=== PATIENT | male | born 2000 | race Caucasian/White ===

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

== ENCOUNTER 2024-08-31 15:46 | Emergency (ER) | payer MEDICAID, OTHER ==
--- NOTE | 2024-08-31 16:23 | ED ---
General Adult HPI - General Stated complaint: Testicular Pain/Back Pain Time Seen by Provider: 08/31/24 16:00 Source: patient, RN notes reviewed - History of Present Illness Initial comments: This is a 23-year-old male presenting to the emergency department for complaint of testicular pain that started at 1400 this afternoon with pain that radiated into his back. When pain started he had associated nausea and vomiting due to s everity of pain. He states the pain started while he was lying in bed he is he was off from work today. Currently denies dysuria, hematuria, previous urinary frequency or urgency. Also denies testicular swelling, erythema, penile discharge. Denies concern for STI or STD. - Related Data Home Medications Medication Instructions Recorded Confirmed No Known Home Medications 08/20/20 08/20/20 Allergies Allergy/AdvReac Type Severity Reaction Status Date / Time No Known Allergies Allergy Verified 08/31/24 16:31 Review of Systems ROS Statement: Those systems with pertinent positive or pertinent negative responses have been documented in the HPI. ROS Other: All systems not noted in ROS Statement are negative. Past Medical History Past Medical History: No Reported History History of Any Multi-Drug Resistant Organisms: None Reported Past Surgical History: Orthopedic Surgery Additional Past Surgical History / Comment(s): ankle surgery Past Psychological History: No Psychological Hx Reported Smoking Status: Never smoker Past Alcohol Use History: None Reported Past Drug Use History: None Reported General Exam - General Exam Comments Initial Comments: Visual Physical Exam Vital signs reviewed General: Well-appearing, nontoxic, no acute distress. Head: Normocephalic, atraumatic Eyes: PERRLA, EOMI ENT: Airway patent Chest: Nonlabored breathing Skin: No visual rash, normal skin tone Neuro: Alert and oriented 3 Musculoskeletal: No gross abnormalities General appearance: alert, in no apparent distress Neck exam: Present: normal inspection. Absent: tenderness, meningismus, lymphadenopathy Respiratory exam: Present: normal lung sounds bilaterally. Absent: respiratory distress, wheezes, rales, rhonchi, stridor Cardiovascular Exam: Present: regular rate, normal rhythm, normal heart sounds. Absent: systolic murmur, diastolic murmur, rubs, gallop, clicks GI/Abdominal exam: Present: soft, normal bowel sounds. Absent: distended, tenderness, guarding, rebound, rigid exam: Present: normal inspection. Absent: urethral discharge, scrotal swelling, vertical testicular lie Extremities exam: Present: normal inspection, full ROM, normal capillary refill. Absent: tenderness, pedal edema, joint swelling, calf tenderness Back exam: Present: normal inspection, CVA tenderness (L). Absent: CVA tenderness (R) Course Vital Signs 08/31/24 08/31/24 08/31/24 16:28 18:22 20:04 Temperature 98.5 F 98.4 F 99.1 F Pulse Rate 89 80 93 Respiratory 20 20 18 Rate Blood Pressure 134/86 130/84 114/80 O2 Sat by Pulse 98 99 99 Oximetry Medical Decision Making - Medical Decision Making Was pt. sent in by a medical professional or institution (, PA, DISCHARGE DOOR OPERATOR, urgent care, hospital, or group home...) When possible be specific @ -No Did you speak to anyone other than the patient for history (EMS, parent, family, police, friend...)? What history was obtained from this source @ -No Did you review nursing and triage notes (agree or disagree)? Why? @ -I reviewed and agree with nursing and triage notes Were old charts reviewed (outside hosp., previous admission, EMS record, old EKG, old radiological studies, urgent care reports/EKG's, group home records)? Report findings @ -No old charts were reviewed Differential Diagnosis (chest pain, altered mental status, abdominal pain women, abdominal pain men, vaginal bleeding, weakness, fever, dyspnea, syncope, headache, dizziness, GI bleed, back pain, seizure, CVA, palpatations, mental health, musculoskeletal)? @ -Differential Abdominal Pain Men: Appendicitis, cholecystitis, diverticulosis, ischemic bowel, pancreatitis, hepatitis, UTI, gastroenteritis, AAA, incarcerated hernia, bowel obstruction, constipation, inflammatory bowel, hepatitis, peptic ulcer disease, splenic infarction, perforated viscus, testicular torsion, this is not meant to be an all-inclusive list EKG interpreted by me (3pts min.). @ -None X-rays interpreted by me (1pt min.). @ -None done CT interpreted by me (1pt min.). @ -CT of the abdomen pelvis without contrast reveals 2 bladder stones measuring up to 3 mm with no obstructive calculus visualized no renal calculi or hydronephrosis U/S interpreted by me (1pt. min.). @ -Scrotal ultrasound with Doppler completed with no evidence for acute process, no evidence of intratesticular mass with arterial and venous waveforms to testes What testing was considered but not performed or refused? (CT, X-rays, U/S, labs)? Why? @ -None What meds were considered but not given or refused? Why? @ -None Did you discuss the management of the patient with other professionals (professionals i.e. Dr., PA, DISCHARGE DOOR OPERATOR, lab, RT, psych nurse, social worker clinical, graphics software engineer, teacher, signals officer, onsite case manager)? Give summary @ -No Was smoking cessation discussed for >3mins.? @ -No Was critical care preformed (if so, how long)? @ -No Were there social determinants of health that impacted care today? How? (Homelessness, low income, unemployed, alcoholism, drug addiction, transportation, low edu. Level, literacy, decrease access to med. care, intermediate, rehab)? @ -No Was there de-escalation of care discussed even if they declined (Discuss DNR or withdrawal of care, Hospice)? DNR status @ -No What co-morbidities impacted this encounter? (DM, HTN, Smoking, COPD, CAD, Cancer, CVA, ARF, Chemo, Hep., AIDS, mental health diagnosis, sleep apnea, morbid obesity)? @ -None Was patient admitted / discharged? Hospital course, mention meds given and ro ranjana, prescriptions, significant lab abnormalities, going to OR and other pertinent info. @ -discharged. 23-year-old male presenting with testicular pain. Overall patient is well-appearing in no signs of distress. Physical exam remarkable for mild CVA tenderness to the left flank with radiation to the mild mid abdomen. Urinalysis remarkable for moderate blood with 67 red cells. With concern for hematuria and flank pain patient will be evaluated CT imaging to rule out kidney stone. Ultrasound of the scrotum is unremarkable. Patient was offered pain medication however declined. Patient's urine is sent for evaluation of chlamydia gonorrhea. CT reveals bladder stones measuring 3 mm with no evidence of obstructive calculus or hydronephrosis. Patient is prior with referral to ur ology and return parameters have been discussed. Case discussed with Dr. Quintanilla Undiagnosed new problem with uncertain prognosis? @ -No Drug Therapy requiring intensive monitoring for toxicity (Heparin, Nitro, Insulin, Cardizem)? @ -No Were any procedures done? @ -No Diagnosis/symptom? @ -flank pain, testicular pain, hematuria. Acute, or Chronic, or Acute on Chronic? @ -acute Uncomplicated (without systemic symptoms) or Complicated (systemic symptoms)? @ -uncomplicated Side effects of treatment? @ -No Exacerbation, Progression, or Severe Exacerbation? @ -No Poses a threat to life or bodily function? How? (Chest pain, [place], [place], pneumonia, PE, COPD, DKA, ARF, appy, cholecystitis, CVA, Diverticulitis, Homicidal, Suicidal, threat to staff... and all critical care pts) @ -No - Lab Data Lab Results 08/31/24 Range/Units 16:43 Urine Color Yellow Urine Appearance Clear (Clear) Urine pH 8.0 (5.0-8.0) Ur Specific [place] 1.020 (1.001-1.035) Urine Protein Negative (Negative) Urine Glucose (UA) Negative (Negative) Urine Ketones Negative (Negative) Urine Blood Moderate H (Negative) Urine Nitrite Negative (Negative) Urine Bilirubin Negative (Negative) Urine Urobilinogen 2.0 (<2.0) mg/dL Ur Leukocyte Esterase Negative (Negative) Urine RBC 67 H (0-5) /hpf Urine WBC 2 (0-5) /hpf Urine Mucus Few H (None) /hpf Disposition Clinical Impression: Testicular pain, Hematuria Disposition: HOME SELF-CARE Condition: Stable Instructions (If sedation given, give patient instructions): Hematuria (ED) Additional Instructions: Please return to the Emergency Department if symptoms worsen or any other concerns. Is patient prescribed a controlled substance at d/c from ED?: No Referrals: None,Stated [Primary Care Provider] - 1-2 days Pj Shahid MD [STAFF PHYSICIAN] - 1-2 days Time of Disposition: 19:44
[2024-08-31 16:56] LABS: Appearance,Urine Clear (Clear); Bilirubin,Urine Negative (Negative); Blood,Urine Moderate (Negative); Color,Urine Yellow; Glucose,Urine (UA) Negative (Negative); Ketones,Urine Negative (Negative); Leukocyte Esterase,Urine Negative (Negative); Mucus,Urine Few /hpf; Nitrite,Urine Negative (Negative); Protein,Urine Negative (Negative); RBC,Urine 67 /hpf (0-5); WBC,Urine 2 /hpf (0-5)
--- NOTE | 2024-08-31 18:19 | US ---
EXAMINATION TYPE: US scrotum with doppler. DATE OF EXAM: 08/31/2024 COMPARISON: NONE CLINICAL INDICATION: Male, 23 years old with history of pain; patient states left testicle pain since 2pm. was really bad, now a 07/20. TECHNIQUE: Grayscale, color Doppler and spectral Doppler imaging of the scrotum. FINDINGS: EXAM MEASUREMENTS: TESTICLES: Right Testicle: 4.2 x 2.2 x 3.0 cm Left Testicle: 4.2 x 2.5 x 3.4 cm EPIDIDYMIS HEAD: Right Epididymis: 1.1 x 0.9 x 1.1 cm Left Epididymis: 1.1 x 1.0 x 0.9 cm Doppler performed to assess for testicular vascularity; good bilateral color flow and spectral wavefo juan carlos are seen. There is no evidence of testicular torsion. Presence of hydroceles: trace amount of fluid left side Presence of varicoceles: no IMPRESSION: 1. No evidence for acute process. 2. No evidence for intratesticular mass. 3. Appropriate arterial and venous spectral waveforms to the testes. [facility], , 08/31/2024 6:17 PM
--- NOTE | 2024-08-31 19:37 | CT ---
EXAMINATION TYPE: CT abdomen pelvis wo con DATE OF EXAM: 08/31/2024 6:45 PM COMPARISON: None CLINICAL INDICATION: Male, 23 years old with history of L flank pain w/ radiation in abd. hematuria; Left side abdominal flank pain, hematuria. TECHNIQUE: Axial CT abdomen pelvis wo con;Sagittal and coronal reformats were created on a separate workstation. Contrast used: mL of , (none if empty) Oral contrast used: without Oral Contrast (none if empty) CT DLP: 799.5 mGycm, Automated exposure control for dose reduction was used. FINDINGS: LOWER CHEST: Unremarkable ABDOMEN LIVER: Unremarkable GALLBLADDER AND BILE DUCTS: Unremarkable. PANCREAS: Unremarkable. SPLEEN: Unremarkable. ADRENAL GLANDS: Unremarkable. KIDNEYS AND URETERS: No evidence of hydronephrosis or renal calculus. The ureters are unremarkable. PELVIS BLADDER: 2 calcifications layering in the bladder lumen dependently measuring up to 3 mm. REPRODUCTIVE: Unremarkable. ABDOMEN & PELVIS STOMACH AND BOWEL: No evidence of bowel obstruction. The appendix is normal. PERITONEUM/RETROPERITONEUM: No evidence of pneumoperitoneum or free fluid. VASCULATURE: No evidence of aortic aneurysm. Retroaortic left renal vein. MUSCULOSKELETAL: No acute osseous abnormalities LYMPH NODES: No gross evidence for lymphadenopathy. SOFT TISSUE/ABDOMINAL WALL: Fat-containing umbilical hernia. IMPRESSION: There are 2 bladder stones measuring up to 3 mm. No obstructive calculus visualized. No renal calculi visualized. No hydronephrosis. [facility], , 08/31/2024 7:35 PM
[2024-08-31 20:11] VITALS: BP 114/80; PULSE 93; RESP 18; TEMP 99.1
== END 2024-08-31 20:18 | disposition home or self-care (01) ==
LOC: EC 15:46
DX: N21.0 Calculus in bladder (principal)
CPT/HCPCS: 74176; 76870; 81001; 87491; 87591; 93975; 99284